=== PATIENT | male | born 1970 | race Caucasian/White ===

== ENCOUNTER 2023-09-15 07:30 | Inpatient (IN) ==
[2023-09-15] MEDS ORDERED: NS 1,000 ML IV 1,000 ML IV ONE (07:52)
[2023-09-15] MEDS ORDERED: NS 1,000 ML IV 1,000 ML ONE ×2 (07:55→08:56)
[2023-09-15 08:09] LABS: BASOPHILS # (AUTO) 0.2 X10^3/uL (0.0-0.1); BASOPHILS % (AUTO) 0.9 % (0.2-1.0); EOSINOPHILS % (AUTO) 0.1 % (0.9-2.9); HEMATOCRIT 46.5 % (42.0-54.0); HEMOGLOBIN 15.7 g/dL (13.5-18.0); LYMPHOCYTES # (AUTO) 1.2 X10^3/uL (1.3-2.9); MEAN CORPUSCULAR HEMOGLOBIN 29.2 pg (27.0-34.0); MEAN CORPUSCULAR HGB CONC 33.8 g/dL (33.0-35.0); MEAN CORPUSCULAR VOLUME 86.6 fL (80.0-100.0); MEAN PLATELET VOLUME 7.2 fL (7.4-11.0); MONOCYTES # (AUTO) 1.4 x10^3/uL (0.3-0.8); MONOCYTES % (AUTO) 8.2 % (0.0-13.0); NEUTROPHILS # (AUTO) 14.2 x10^3/uL (2.2-4.8); NEUTROPHILS % (AUTO) 83.8 % (42.0-75.0); PLATELET COUNT 236 X10^3/uL (150.0-450.0); RED BLOOD COUNT 5.38 X10^6/uL (4.7-6.0); RED CELL DISTRIBUTION WIDTH 13.2 % (11.6-16.5); WHITE BLOOD COUNT 16.9 X10^3/uL (3.6-10.0)
--- NOTE | 2023-09-15 08:09 | DR.GENAD ---
HPI <Ayaz Whitmore - Last Filed: 09/16/23 09:20> Time Seen Time Seen by Provider: 09/15/23 07:51 PCP Primary Care Physician: CARRIE Merida Complaint/Symptoms Chief Complaint Doctors Comments: 52-year-old male presents for evaluation. HPI summarized nicely by the triage nurse in the paragraph below -had 2 syncopal episodes while trying to have a BM. Then proceeded to have lower abdominal cramping/pain with large bloody bowel. Had 3 bloody bowel movements in a short amount of time. No history of known diverticulosis, internal hemorrhoids. Patient is on Eliquis. Currently having lower abdominal cramping, no lig htheadedness or dizziness at the present time. [facility] slightly nauseous on the way over but better now. Denies fever, recent illness. Chief Complaint:: Pt states that around 2am this morning got up to the bathroom and felt that he had to have a BM. Pt passed gas and the next thing he knew he woke up on the bathroom floor. Pt's assisted him back to bed and in a few minutes he felt like he needed have a BM again so he got up and again passed out. Pt has had weakness and dizziness since then. Pt did eventually get to the bathroom and tried to have a BM and had a sudden onset of lower mid abdominal pain described as constant sharp stabbing in nature and noticed a lot of bright red blood in the toilet. Pt also states that his urine was dark this morning. Pt does have a wound to the bottom of the left foot that has worsened and he now has redness to the top of the left foot. COVID-19 Coronavirus risk:travel/contact w/high risk person: No Has patient experienced Coronavirus symptoms: No Nurses notes reviewed Nurses Notes Review: Yes Source History Provided: Patient Mode of Arrival Mode of Arrival: Ambulatory Timing Onset of Chief Complaint: 09/15/23 PMH <Ayaz Whitmore - Last Filed: 09/16/23 09:20> PMH Past Medical History: Yes Past Medical History: Diabetes and Hypertension Past Medical History Comment: neuropathy, Factor V Leiden, Brain Bleed Past Surgical History: Yes Surgical History: Appendectomy Past Surgical History Comment: Bilateral great toe surgery, Back Surgery, Left index finger reconstruction Family History History of Family Medical Conditions: Yes Family Medical History: Diabetes Mellitus, Cancer, [place], Coronary Artery Disease, Heart Failure and Hypertension Social History Does patient currently use any type of tobacco product: No Have you used tobacco products in the last 12 months: No Type of Tobacco Use: None Does any household member use tobacco: No Alcohol Use: None Do you use any recreational Drugs:: No Lives With: Spouse Lives Where: Home Travel Risk Coronavirus risk:travel/contact w/high risk person: No Has patient experienced Coronavirus symptoms: No Infectious screening In the last 2 months have you had wt loss of >10#?: NO Have you had fever, night sweats or hemotysis?: No Have you traveled outside the country in the last 6 months?: No Isolation: Standard ROS <Ayaz Haim - Last Filed: 09/16/23 09:20> Review of Systems Constitutional: No Symptoms Reported Eyes: No Symptoms Reported ENTM: No Symptoms Reported Respiratoy: No Symptoms Reported Cardiovascular: No Symptoms Reported Gastrointestinal/Abdominal: See HPI Genitourinary: No Symptoms Reported Neurological: No Symptoms Reported Musculoskeletal: No Symptoms Reported Integumentary: No Symptoms Reported Hematologic/Lymphatic: No Symptoms Reported All Other Systems: Reviewed and Negative PE <Ayazabebe Whitmore - Last Filed: 09/16/23 09:20> Vital Signs Vitals: Vital Signs Temperature 98.9 F Pulse Rate 66 Pulse Rate 69 Pulse Rate 71 Pulse Rate 63 Pulse Rate 68 Pulse Rate 68 Pulse Rate 78 Pulse Rate 67 Respiratory Rate 22 Respiratory Rate 32 Respiratory Rate 29 Respiratory Rate 34 Respiratory Rate 29 Respiratory Rate 21 Respiratory Rate 20 Respiratory Rate 24 Blood Pressure 98/60 Blood Pressure 89/62 Blood Pressure 90/58 Blood Pressure 85/57 O2 Sat by Pulse Oximetry 98 General General Appearance: Alert and In No Apparent Distress Eyes Eye exam: PERRL and EOMI ENT ENT Exam: Normal Exam and Normal Oropharynx Neck Neck Exam: Normal Inspection Respiratory Respiratory Exam: Normal Lung Sounds Bilat; negative Accessory Muscle Use or Respiratory Distress Cardiovascular Cardiovascular Exam: Regular Rate, Normal Rhythm and Normal Heart Sounds Abdominal Exam Abdominal Exam: Normal Bowel Sounds, Soft and Tenderness (Across the lower abdomen, no guarding or rebound) Extremities Extremities Exam: Normal Inspection Neurologic Neurological Exam: Alert, Oriented X3 and CN II-XII Intact; negative Motor Sensory Deficit Skin Skin Exam: Warm and Dry <Ruba Morris - Last Filed: 09/15/23 10:30> Vital Signs Vitals: Vital Signs Temperature 98.9 F Pulse Rate 66 Pulse Rate 69 Pulse Rate 71 Pulse Rate 63 Pulse Rate 68 Pulse Rate 68 Pulse Rate 78 Pulse Rate 67 Respiratory Rate 22 Respiratory Rate 32 Respiratory Rate 29 Respiratory Rate 34 Respiratory Rate 29 Respiratory Rate 21 Respiratory Rate 20 Respiratory Rate 24 Blood Pressure 98/60 Blood Pressure 89/62 Blood Pressure 90/58 Blood Pressure 85/57 O2 Sat by Pulse Oximetry 98 COURSE <Ayaz Whitmore - Last Filed: 09/16/23 09:20> Treatment Treatment: 52-year-old male presents for evaluation. Had 2 syncopal episodes while trying to move his bowels earlier this a.m.. Episodes then followed with large amount of bright red blood per rectal, x 3. Currently no distress, has mild abdominal discomfort. Workup initiated. Patient given IV fluids. Patient also with a developing cellulitis of his left foot, probably coming from diabetic foot ulcer of the plantar surface. Was treated with doxycycline and Cipro 2 weeks ago. Patient will be signed over to my relief physician. <Ruba Morris - Last Filed: 09/15/23 10:30> Treatment Treatment: 52-year-old male presents for evaluation. Had 2 syncopal episodes while trying to move his bowels earlier this a.m.. Episodes then followed with large amount of bright red blood per rectal, x 3. Currently no distress, has mild abdominal discomfort. Workup initiated. Patient given IV fluids. Patient also with a developing cellulitis of his left foot, probably coming from diabetic foot ulcer of the plantar surface. Was treated with doxycycline and Cipro 2 weeks ago. Patient will be signed over to my relief physician. Assumed care from Dr Whitmore. Patient was hypotensive with a systolic BP in the 80's.He received NS 1 liter iv bolus and his BP 98/60. Patient has a diabetic foot ulcer and a cellulitis on t he dorsal surface of his L foot. Patient has a WBC 16.9 and a stable H/H. Concerned about bacteremia because he has been taking ciprofloxacin and doxycycline prescribed by his poiatrist.Patient also had BRBPR x 2 episodes and had 2 syncopal episodes at the house. 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 Discussed case with Dr Garnica who will admit patient to his service. NS @ 125ml/hr has been ordered,blood cx,and vancomycin 1500mg iv. Patient c/o headache and neck pain.Head CT w/o contrast and Cervical Spine Ct w/o contrast did not reveal an acute process per te Radiologist. ROR <Ayaz Whitmore - Last Filed: 09/16/23 09:20> Labs Reviewed 09/16/23 04:50 09/16/23 04:50 Laboratory: WBC 16.9 X10^3/uL (3.6-10.0) H 09/15/23 07:50 RBC 5.38 X10^6/uL (4.7-6.0) 09/15/23 07:50 Hgb 15.7 g/dL (13.5-18.0) 09/15/23 07:50 Hct 46.5 % (42.0-54.0) 09/15/23 07:50 MCV 86.6 fL (80.0-100.0) 09/15/23 07:50 MCH 29.2 pg (27.0-34.0) 09/15/23 07:50 MCHC 33.8 g/dL (33.0-35.0) 09/15/23 07:50 RDW 13.2 % (11.6-16.5) 09/15/23 07:50 Plt Count 236 X10^3/uL (150.0-450.0) 09/15/23 07:50 MPV 7.2 fL (7.4-11.0) L 09/15/23 07:50 Neut % (Auto) 83.8 % (42.0-75.0) H 09/15/23 07:50 Lymph % (Auto) 7.0 % (21.0-51.0) L 09/15/23 07:50 [place] % (Auto) 8.2 % (0.0-13.0) 09/15/23 07:50 Eos % (Auto) 0.1 % (0.9-2.9) L 09/15/23 07:50 Baso % (Auto) 0.9 % (0.2-1.0) 09/15/23 07:50 Neut # (Auto) 14.2 x10^3/uL (2.2-4.8) H 09/15/23 07:50 Lymph # (Auto) 1.2 X10^3/uL (1.3-2.9) L 09/15/23 07:50 [place] # (Auto) 1.4 x10^3/uL (0.3-0.8) H 09/15/23 07:50 Eos # (Auto) 0.0 x10^3/uL (0.0-0.2) 09/15/23 07:50 Baso # (Auto) 0.2 X10^3/uL (0.0-0.1) H 09/15/23 07:50 Absolute Nucleated RBC 0.2 /100WBC 09/15/23 07:50 PT 14.6 SECONDS (11.8-14.3) 09/15/23 07:50 INR Target Range - 09/15/23 07:50 INR 1.16 (0.8-1.3) 09/15/23 07:50 APTT 27.9 SECONDS (22.9-36.5) 09/15/23 07:50 PTT Comment - 09/15/23 07:50 Sodium 132 mmol/L (136-145) L 09/15/23 07:50 Corrected Sodium 133 mmol/L (136-145) L 09/15/23 07:50 Potassium 4.4 mmol/L (3.5-5.1) 09/15/23 07:50 Chloride 97 mmol/L (98-107) L 09/15/23 07:50 Carbon Dioxide 28.4 mmol/L (21-32) 09/15/23 07:50 BUN 17 mg/dL (7-18) 09/15/23 07:50 Creatinine 1.25 mg/dL (0.70-1.30) 09/15/23 07:50 Est GFR (MDRD) Af Amer > 60 (>60) 09/15/23 07:50 Est GFR (MDRD) Non-Af > 60 (>60) 09/15/23 07:50 Glucose 146 mg/dL (65-99) H 09/15/23 07:50 Lactic Acid 1.1 mmol/L (0.4-2.0) 09/15/23 08:57 Calcium 9.2 mg/dL (8.5-10.1) 09/15/23 07:50 Corrected Calcium 9.8 mg/dL (8.5-10.1) 09/15/23 07:50 Total Bilirubin 1.60 mg/dL (0.2-1.0) H 09/15/23 07:50 AST 15 Units/L (15-37) 09/15/23 07:50 ALT 21 Units/L (12-78) 09/15/23 07:50 Alkaline Phosphatase 90 Units/L (46-116) 09/15/23 07:50 Troponin I High Sens 7.2 ng/L (4.0-60.0) 09/15/23 07:50 Total Protein 7.4 g/dL (6.4-8.2) 09/15/23 07:50 Albumin 3.3 g/dL (3.4-5.0) L 09/15/23 07:50 Globulin 4.1 g/dL (2.5-4.5) 09/15/23 07:50 Albumin/Globulin Ratio 0.8 Ratio (1.1-2.1) L 09/15/23 07:50 Lipase 28 Units/L (16-77) 09/15/23 07:50 EKG Rate: 67 [place]: Normal Rhythm: NSR ST: Nonsp <Ruba Morris - Last Filed: 09/15/23 10:30> Labs Reviewed Laboratory Results Reviewed?: Yes Laboratory: WBC 16.9 X10^3/uL (3.6-10.0) H 09/15/23 07:50 RBC 5.38 X10^6/uL (4.7-6.0) 09/15/23 07:50 Hgb 15.7 g/dL (13.5-18.0) 09/15/23 07:50 Hct 46.5 % (42.0-54.0) 09/15/23 07:50 MCV 86.6 fL (80.0-100.0) 09/15/23 07:50 MCH 29.2 pg (27.0-34.0) 09/15/23 07:50 MCHC 33.8 g/dL (33.0-35.0) 09/15/23 07:50 RDW 13.2 % (11.6-16.5) 09/15/23 07:50 Plt Count 236 X10^3/uL (150.0-450.0) 09/15/23 07:50 MPV 7.2 fL (7.4-11.0) L 09/15/23 07:50 Neut % (Auto) 83.8 % (42.0-75.0) H 09/15/23 07:50 Lymph % (Auto) 7.0 % (21.0-51.0) L 09/15/23 07:50 [place] % (Auto) 8.2 % (0.0-13.0) 09/15/23 07:50 Eos % (Auto) 0.1 % (0.9-2.9) L 09/15/23 07:50 Baso % (Auto) 0.9 % (0.2-1.0) 09/15/23 07:50 Neut # (Auto) 14.2 x10^3/uL (2.2-4.8) H 09/15/23 07:50 Lymph # (Auto) 1.2 X10^3/uL (1.3-2.9) L 09/15/23 07:50 [place] # (Auto) 1.4 x10^3/uL (0.3-0.8) H 09/15/23 07:50 Eos # (Auto) 0.0 x10^3/uL (0.0-0.2) 09/15/23 07:50 Baso # (Auto) 0.2 X10^3/uL (0.0-0.1) H 09/15/23 07:50 Absolute Nucleated RBC 0.2 /100WBC 09/15/23 07:50 PT 14.6 SECONDS (11.8-14.3) 09/15/23 07:50 INR Target Range - 09/15/23 07:50 INR 1.16 (0.8-1.3) 09/15/23 07:50 APTT 27.9 SECONDS (22.9-36.5) 09/15/23 07:50 PTT Comment - 09/15/23 07:50 Sodium 132 mmol/L (136-145) L 09/15/23 07:50 Corrected Sodium 133 mmol/L (136-145) L 09/15/23 07:50 Potassium 4.4 mmol/L (3.5-5.1) 09/15/23 07:50 Chloride 97 mmol/L (98-107) L 09/15/23 07:50 Carbon Dioxide 28.4 mmol/L (21-32) 09/15/23 07:50 BUN 17 mg/dL (7-18) 09/15/23 07:50 Creatinine 1.25 mg/dL (0.70-1.30) 09/15/23 07:50 Est GFR (MDRD) Af Amer > 60 (>60) 09/15/23 07:50 Est GFR (MDRD) Non-Af > 60 (>60) 09/15/23 07:50 Glucose 146 mg/dL (65-99) H 09/15/23 07:50 Lactic Acid 1.1 mmol/L (0.4-2.0) 09/15/23 08:57 Calcium 9.2 mg/dL (8.5-10.1) 09/15/23 07:50 Corrected Calcium 9.8 mg/dL (8.5-10.1) 09/15/23 07:50 Total Bilirubin 1.60 mg/dL (0.2-1.0) H 09/15/23 07:50 AST 15 Units/L (15-37) 09/15/23 07:50 ALT 21 Units/L (12-78) 09/15/23 07:50 Alkaline Phosphatase 90 Units/L (46-116) 09/15/23 07:50 Troponin I High Sens 7.2 ng/L (4.0-60.0) 09/15/23 07:50 Total Protein 7.4 g/dL (6.4-8.2) 09/15/23 07:50 Albumin 3.3 g/dL (3.4-5.0) L 09/15/23 07:50 Globulin 4.1 g/dL (2.5-4.5) 09/15/23 07:50 Albumin/Globulin Ratio 0.8 Ratio (1.1-2.1) L 09/15/23 07:50 Lipase 28 Units/L (16-77) 09/15/23 07:50 Opioid <Ayaz Whitmore - Last Filed: 09/16/23 09:20> Opioid Risk Tool Age (Abhi box if 16-45): No History of Preadolescent Sexual Abuse: No Total: 0 Total Score Risk Category: Low Risk Copyright: Ritchie DOWD predicting aberrant behaviors <Ruba Morris - French Filed: 09/15/23 10:30> Opioid Risk Tool Total: 0 Total Score Risk Category: Low Risk Discharge Plan Diagnosis Discharge Problem: Cellulitis of foot, left, Failure of outpatient treatment, Acute hypotension, Rectal bleeding Discharge Plan Patient Disposition: 09 ADMITTED INPATIENT Condition: Stable
[2023-09-15 08:13] LABS: INR 1.16 (0.8-1.3)
[2023-09-15 08:21] LABS: ALANINE AMINOTRANSFERASE 21 Units/L (12-78); ALBUMIN 3.3 g/dL (3.4-5.0); ALKALINE PHOSPHATASE 90 Units/L (46-116); ASPARTATE AMINO TRANSFERASE 15 Units/L (15-37); BLOOD UREA NITROGEN 17 mg/dL (7-18); CALCIUM 9.2 mg/dL (8.5-10.1); CARBON DIOXIDE 28.4 mmol/L (21-32); CHLORIDE 97 mmol/L (98-107); COR CA(FOR HYPOALB) 9.8 mg/dL (8.5-10.1); COR NA(FOR HYPERGLY) 133 mmol/L (136-145); CREATININE 1.25 mg/dL (0.70-1.30); GLUCOSE 146 mg/dL (65-99); LIPASE 28 Units/L (16-77); POTASSIUM 4.4 mmol/L (3.5-5.1); SODIUM 132 mmol/L (136-145); TOTAL PROTEIN 7.4 g/dL (6.4-8.2); eGFR NON BLACK RACES > 60 (>60)
--- NOTE | 2023-09-15 08:39 | EKG ---
Test Reason : syncope Blood Pressure : */* mmHG Vent. Rate : 67 BPM Atrial Rate : 67 BPM P-R Int : 164 ms QRS Dur : 100 ms QT Int : 386 ms P-R-T Axes : 16 33 100 degrees QTc Int : 407 ms Normal sinus rhythm lateral t wave abnormality Abnormal ECG No previous ECGs available Confirmed by Francois Carmichael MD ([id number]) on 09/16/2023 9:24:54 AM Referred By: Confirmed By: Francois Carmichael MD
[2023-09-15] MEDS ORDERED: VANCOMYCIN IV *PREMIX 1.5 G/300 ML BAG 1.5 G/300 ML PIGGYBACK IV ONE ×2 (08:54→08:56)
[2023-09-15] MEDS ORDERED: VANCOMYCIN IV *PREMIX 1.5 G/300 ML BAG 1.5 G/300 ML PIGGYBACK IV SCH (09:00)
[2023-09-15] MEDS: NS 1,000 ML IV 1,000 ML IV SCH ×2 (09:01→17:26)
--- NOTE | 2023-09-15 09:49 | CT ---
EXAM:HEAD (TRAUMA)HISTORY:Pt passed out hit back of head. pt is on blood thinner;COMPARISON:NoneTECHNIQUE:Multipl e CT axial images of the brain were obtained without IV contrast. Coronal and sagittal images were reconstructed. Dose reduction techniques included Automated Exposure Control (AEC) and adjustment of mA and kV.FINDINGS:Goel and white matter have normal differentiation. There is no mass, shift, or hemorrhage. Cerebellar tonsils are at an appropriate level. No fluid in the sinuses or mucosal thickening to suggest sinusitis. There is no mastoid effusion. There is no calvarium fracture.IMPRESSION:1. No acute findingTHIS IS AN ELECTRONICALLY VERIFIED FINAL REPORT09/15/2023 9:46 AM - Electronically signed by Ho Rucker MD
--- NOTE | 2023-09-15 09:53 | CT ---
EXAM:CERVICAL SPINE W/O CONHISTORY:fall with neck pain;COMPARISON:NoneTECHNIQUE:Multiple CT axial images of the cervical spine were obtained without IV contrast. Coronal and sagittal images were reconstructed. Dose reduction techniques included Automated Exposure Control (AEC) and adjustment of mA and kV.FINDINGS:There is no significant scoliosis. The usual lordosis is maintained.The heights of the vertebral bodies are normal. No subluxation or prevertebral soft tissue swelling.No fracture.Only very minimal changes of degenerative disc disease are noted at C4-5 level and the C6-7 level. Even less pronounced findings of facet osteoarthritis.The thyroid has a normal size and configuration. No neck mass or significant lymphadenopathy. Vascular calcifications are seen in the carotid arteries.IMPRESSION:1. No acute findings2. Mild spondylosisTHIS IS AN ELECTRONICALLY VERIFIED FINAL REPORT09/15/2023 9:50 AM - Electronically signed by oH Rucker MD
[2023-09-15 11:45] VITALS: BMI 27.4
[2023-09-15] MEDS ORDERED: PHARMACY CONSULT - VANCOMYCIN XX SCH (12:00)
--- NOTE | 2023-09-15 13:32 | DR.H&P ---
H&P History & Physical for Day of: H&P Date: 09/15/23 Chief Complaint Chief Complaint: SYNCOPE, RECTAL BLEEDING, INFECTED ULCER TO LFOOT Allergies Allergies Allergy/AdvReac Type Severity Reaction Status Date / Time No Known Drug Allergies Allergy Verified 09/15/23 11:46 History of Present Illness History of Present Illness: 52 WM, ER admission after he presents for evaluation for co 2 syncopal episodes while trying to have a BM. Then proceeded to have lower abdominal cramping/pain with large bloody bowel. Had 3 bloody bowel movements in a short amount of time. No history of known diverticulosis, internal hemorrhoids. Patient is on Eliquis due to Factor V disorder. Pt reports he has a wound to his left that is red, with increased swelling and pain. Pt has been under routine care of [facility] [employer], with redness acute finding. Pt had at Ct of head and cspine in the ER. Pt admitted for treatment and evaluation of acute illness. Past Medical History Past Medical History: Diabetes and Hypertension Past Surgical History Surgical History: Appendectomy and Ortho Surgery Family History Family Medical History: Diabetes Mellitus, Cancer, Coronary Artery Disease and Hypertension Social History Does patient currently use any type of tobacco product: No Have you used tobacco products in the last 12 months: No Type of Tobacco Use: None Does any household member use tobacco: No Alcohol Use: None Drug Use: None Medications Home Medications: Home Medications Medication Instructions Recorded Confirmed Type apixaban 5 mg tablet (Eliquis) 5 mg PO QDAY 09/15/23 09/15/23 History atorvastatin 20 mg tablet 20 mg PO QPM 09/15/23 09/15/23 History ergocalciferol (vitamin D2) 1,250 1,250 mcg PO QWEEK 09/15/23 09/15/23 History mcg (50,000 unit) capsule losartan 100 mg tablet 100 mg PO QDAY 09/15/23 09/15/23 History tirzepatide 15 mg/0.5 mL 15 mg subcut QWEEK 09/15/23 09/15/23 History subcutaneous pen injector (Mounjaro) Labs 09/15/23 07:50 09/15/23 07:50 Labs: Laboratory WBC 16.9 X10^3/uL (3.6-10.0) H 09/15/23 07:50 RBC 5.38 X10^6/uL (4.7-6.0) 09/15/23 07:50 Hgb 15.7 g/dL (13.5-18.0) 09/15/23 07:50 Hct 46.5 % (42.0-54.0) 09/15/23 07:50 MCV 86.6 fL (80.0-100.0) 09/15/23 07:50 MCH 29.2 pg (27.0-34.0) 09/15/23 07:50 MCHC 33.8 g/dL (33.0-35.0) 09/15/23 07:50 RDW 13.2 % (11.6-16.5) 09/15/23 07:50 Plt Count 236 X10^3/uL (150.0-450.0) 09/15/23 07:50 MPV 7.2 fL (7.4-11.0) L 09/15/23 07:50 Neut % (Auto) 83.8 % (42.0-75.0) H 09/15/23 07:50 Lymph % (Auto) 7.0 % (21.0-51.0) L 09/15/23 07:50 [place] % (Auto) 8.2 % (0.0-13.0) 09/15/23 07:50 Eos % (Auto) 0.1 % (0.9-2.9) L 09/15/23 07:50 Baso % (Auto) 0.9 % (0.2-1.0) 09/15/23 07:50 Neut # (Auto) 14.2 x10^3/uL (2.2-4.8) H 09/15/23 07:50 Lymph # (Auto) 1.2 X10^3/uL (1.3-2.9) L 09/15/23 07:50 [place] # (Auto) 1.4 x10^3/uL (0.3-0.8) H 09/15/23 07:50 Eos # (Auto) 0.0 x10^3/uL (0.0-0.2) 09/15/23 07:50 Baso # (Auto) 0.2 X10^3/uL (0.0-0.1) H 09/15/23 07:50 Absolute Nucleated RBC 0.2 /100WBC 09/15/23 07:50 PT 14.6 SECONDS (11.8-14.3) 09/15/23 07:50 INR Target Range - 09/15/23 07:50 INR 1.16 (0.8-1.3) 09/15/23 07:50 APTT 27.9 SECONDS (22.9-36.5) 09/15/23 07:50 PTT Comment - 09/15/23 07:50 Sodium 132 mmol/L (136-145) L 09/15/23 07:50 Corrected Sodium 133 mmol/L (136-145) L 09/15/23 07:50 Potassium 4.4 mmol/L (3.5-5.1) 09/15/23 07:50 Chloride 97 mmol/L (98-107) L 09/15/23 07:50 Carbon Dioxide 28.4 mmol/L (21-32) 09/15/23 07:50 BUN 17 mg/dL (7-18) 09/15/23 07:50 Creatinine 1.25 mg/dL (0.70-1.30) 09/15/23 07:50 Est GFR (MDRD) Af Amer > 60 (>60) 09/15/23 07:50 Est GFR (MDRD) Non-Af > 60 (>60) 09/15/23 07:50 Glucose 146 mg/dL (65-99) H 09/15/23 07:50 POC Glucose (mg/dL) 103 mg/dL (65-99) H 09/15/23 11:35 Lactic Acid 1.1 mmol/L (0.4-2.0) 09/15/23 08:57 Calcium 9.2 mg/dL (8.5-10.1) 09/15/23 07:50 Corrected Calcium 9.8 mg/dL (8.5-10.1) 09/15/23 07:50 Total Bilirubin 1.60 mg/dL (0.2-1.0) H 09/15/23 07:50 AST 15 Units/L (15-37) 09/15/23 07:50 ALT 21 Units/L (12-78) 09/15/23 07:50 Alkaline Phosphatase 90 Units/L (46-116) 09/15/23 07:50 Troponin I High Sens 7.2 ng/L (4.0-60.0) 09/15/23 07:50 Total Protein 7.4 g/dL (6.4-8.2) 09/15/23 07:50 Albumin 3.3 g/dL (3.4-5.0) L 09/15/23 07:50 Globulin 4.1 g/dL (2.5-4.5) 09/15/23 07:50 Albumin/Globulin Ratio 0.8 Ratio (1.1-2.1) L 09/15/23 07:50 Lipase 28 Units/L (16-77) 09/15/23 07:50 Review of Systems Constitutional: Weakness Eyes: No Symptoms Reported ENT: No Symptoms Reported Respiratory: No Symptoms Reported Cardiovascular: No Symptoms Reported Gastrointestinal: Diarrhea, Constipation and Melena Musculoskeletal: Foot Pain Skin: Wound Neurological: Weakness and Other (syncope) Physical Exam Vital Signs: Vital Signs Temperature 97.8 F Temperature 98.3 F Temperature 98.9 F Pulse Rate [Brachial] 68 Pulse Rate [Brachial] 71 Pulse Rate 69 Pulse Rate 72 Pulse Rate 68 Pulse Rate 68 Pulse Rate 72 Pulse Rate 71 Pulse Rate 66 Pulse Rate 69 Pulse Rate 71 Pulse Rate 63 Pulse Rate 68 Pulse Rate 68 Pulse Rate 78 Pulse Rate 67 Respiratory Rate 20 Respiratory Rate 25 Respiratory Rate 28 Respiratory Rate 26 Respiratory Rate 26 Respiratory Rate 20 Respiratory Rate 22 Respiratory Rate 41 Respiratory Rate 22 Respiratory Rate 32 Respiratory Rate 29 Respiratory Rate 34 Respiratory Rate 29 Respiratory Rate 21 Respiratory Rate 20 Respiratory Rate 24 Blood Pressure [Left Arm] 129/71 Blood Pressure [Right Arm] 149/67 Blood Pressure [Right Arm] 122/68 Blood Pressure 109/58 Blood Pressure 106/63 Blood Pressure 98/60 Blood Pressure 89/62 Blood Pressure 90/58 Blood Pressure 85/57 O2 Sat by Pulse Oximetry 99 O2 Sat by Pulse Oximetry 99 O2 Sat by Pulse Oximetry 98 Oriented: Normal Eyes: Normal Ear: Normal Nose: Normal Throat: Normal Respiratory: Clear Throughout Cardiovascular: Normal : Normal Palpation: Normal Tenderness: Normal Skin: Decreased [place], Red (diffuse redness to left dorsal aspect, base of 1, 2, 3rd toes) and Wound (left foot. ) Musculoskeletal: Left, Tender and Sensory Deficit Psychiatric: Normal Mood Description: Calm Speech Pattern: Clear and Appropriate Assessment/Plan (1) Syncope: Narrative Support Text: ADMIT, CT HEAD, EKG ABD CE OBTAINED IN ER IV HYDRATION, BP CONTROL BS CONTROL IV ATBX THERAPY, PAIN CONTROL WOUND CARE Status: Acute (2) Cellulitis of foot, left: Status: Acute (3) Diabetes mellitus: Status: Acute (4) Acute hypotension: Status: Acute (5) Rectal bleeding: Status: Acute
[2023-09-15 13:53] LABS: BILIRUBIN,URINE NEGATIVE (NEGATIVE); BLOOD/HEMOGLOBIN,URINE NEGATIVE (NEGATIVE); GLUCOSE, URINE NEGATIVE (NEGATIVE); KETONES,URINE NEGATIVE (NEGATIVE); LEUKOCYTE ESTERASE ,URINE NEGATIVE (NEGATIVE); NITRITES,URINE NEGATIVE (NEGATIVE); PROTEIN,URINE NEGATIVE (NEGATIVE); UROBILINOGEN,URINE NORMAL (NORMAL)
[2023-09-15] MEDS: NORCO 5/325 MG TAB PO PRN (13:57)
[2023-09-15 14:02] LABS: APPEARANCE,URINE CLEAR (CLEAR); COLOR,URINE YELLOW (YELLOW)
[2023-09-15] MEDS: VANCOMYCIN IV *PREMIX 1.5 G/300 ML BAG 1.5 G/300 ML PIGGYBACK IV SCH (20:40)
[2023-09-15] MEDS: LIPITOR TAB 20 MG PO SCH (20:40)
[2023-09-15] MEDS: DILAUDID INJ IVP PRN (21:52)
--- NOTE | 2023-09-16 01:46 | RAD ---
PROCEDURE: Chest X-ray 1 View .HISTORY: SYNCOPE .TECHNIQUE: AP view .COMPARISON: 10/04/2021.TECHNICAL QUALITY: Satisfactory .FINDINGS:Normal size heart .Mediastinum and hilar regions show no masses or lymphadenopathy .Normal central vascularity .No pulmonary consolidation, masses, pleural fluid, or pneumothorax .No acute bony abnormality .IMPRESSION:No active cardiopulmonary disease .Electronically signed by: Rhett Cantu (Sep 16, 2023 01:44:58)
[2023-09-16] MEDS: NS 1,000 ML IV 1,000 ML IV SCH ×3 (02:15→16:53)
[2023-09-16] MEDS: DILAUDID INJ IVP PRN ×5 (02:16→23:30)
[2023-09-16 05:54] LABS: ALANINE AMINOTRANSFERASE 17 Units/L (12-78); ALBUMIN 2.6 g/dL (3.4-5.0); ALKALINE PHOSPHATASE 63 Units/L (46-116); ASPARTATE AMINO TRANSFERASE 10 Units/L (15-37); BLOOD UREA NITROGEN 11 mg/dL (7-18); CALCIUM 8.3 mg/dL (8.5-10.1); CHLORIDE 99 mmol/L (98-107); COR CA(FOR HYPOALB) 9.4 mg/dL (8.5-10.1); COR NA(FOR HYPERGLY) 133 mmol/L (136-145); CREATININE 0.86 mg/dL (0.70-1.30); GLUCOSE 115 mg/dL (65-99); SODIUM 133 mmol/L (136-145); TOTAL PROTEIN 6.4 g/dL (6.4-8.2); eGFR NON BLACK RACES > 60 (>60)
[2023-09-16 06:09] LABS: BASOPHILS # (AUTO) 0.1 X10^3/uL (0.0-0.1); BASOPHILS % (AUTO) 0.6 % (0.2-1.0); EOSINOPHILS # (AUTO) 0.1 x10^3/uL (0.0-0.2); EOSINOPHILS % (AUTO) 0.8 % (0.9-2.9); HEMOGLOBIN 14.4 g/dL (13.5-18.0); LYMPHOCYTES # (AUTO) 1.6 X10^3/uL (1.3-2.9); LYMPHOCYTES % (AUTO) 12.8 % (21.0-51.0); MEAN CORPUSCULAR HEMOGLOBIN 29.3 pg (27.0-34.0); MEAN CORPUSCULAR HGB CONC 34.2 g/dL (33.0-35.0); MEAN CORPUSCULAR VOLUME 85.8 fL (80.0-100.0); MEAN PLATELET VOLUME 7.4 fL (7.4-11.0); MONOCYTES # (AUTO) 1.1 x10^3/uL (0.3-0.8); NEUTROPHILS # (AUTO) 9.6 x10^3/uL (2.2-4.8); NEUTROPHILS % (AUTO) 76.8 % (42.0-75.0); PLATELET COUNT 207 X10^3/uL (150.0-450.0); RED BLOOD COUNT 4.89 X10^6/uL (4.7-6.0); RED CELL DISTRIBUTION WIDTH 13.5 % (11.6-16.5); WHITE BLOOD COUNT 12.6 X10^3/uL (3.6-10.0)
[2023-09-16] MEDS: VANCOMYCIN IV *PREMIX 1.5 G/300 ML BAG 1.5 G/300 ML PIGGYBACK IV SCH ×2 (08:05→21:22)
[2023-09-16] MEDS ORDERED: ELIQUIS PO SCH (09:00)
--- NOTE | 2023-09-16 11:23 | RAD ---
EXAM:FOOT, LEFTHISTORY:CellulitisCOMPARISON:None available.FINDINGS:No acute cortical disruption or dislocation can be identified. No significant soft tissue swelling or injury can be seen.IMPRESSION:Negative examTHIS IS AN ELECTRONICALLY VERIFIED FINAL REPORT09/16/2023 11:19 AM - Electronically signed by Reyes Jerome MD
[2023-09-16] MEDS: PROTONIX INJ 40 MG VIAL IVP SCH ×2 (14:12→21:22)
[2023-09-16] MEDS ORDERED: PHARMACY COMMENT IV NR (19:30)
[2023-09-16 21:09] LABS: CREATININE 0.85 mg/dL (0.70-1.30); VANCOMYCIN,TROUGH 7.7 ug/mL (15-20)
[2023-09-16] MEDS: LIPITOR TAB 20 MG PO SCH (21:22)
[2023-09-17] MEDS: NS 1,000 ML IV 1,000 ML IV SCH ×4 (00:47→17:05)
[2023-09-17] MEDS: DILAUDID INJ IVP PRN ×5 (03:32→20:32)
[2023-09-17] MEDS ORDERED: VANCOMYCIN IV *PREMIX 1.5 G/300 ML BAG 1.5 G/300 ML PIGGYBACK IV SCH (06:00)
[2023-09-17 06:55] LABS: BASOPHILS # (AUTO) 0.1 X10^3/uL (0.0-0.1); BASOPHILS % (AUTO) 0.6 % (0.2-1.0); EOSINOPHILS # (AUTO) 0.1 x10^3/uL (0.0-0.2); EOSINOPHILS % (AUTO) 1.2 % (0.9-2.9); HEMATOCRIT 39.7 % (42.0-54.0); HEMOGLOBIN 13.4 g/dL (13.5-18.0); LYMPHOCYTES # (AUTO) 1.8 X10^3/uL (1.3-2.9); LYMPHOCYTES % (AUTO) 14.5 % (21.0-51.0); MEAN CORPUSCULAR HEMOGLOBIN 28.9 pg (27.0-34.0); MEAN CORPUSCULAR HGB CONC 33.6 g/dL (33.0-35.0); MEAN CORPUSCULAR VOLUME 85.9 fL (80.0-100.0); MEAN PLATELET VOLUME 7.1 fL (7.4-11.0); MONOCYTES # (AUTO) 1.1 x10^3/uL (0.3-0.8); MONOCYTES % (AUTO) 8.8 % (0.0-13.0); NEUTROPHILS # (AUTO) 9.1 x10^3/uL (2.2-4.8); NEUTROPHILS % (AUTO) 74.9 % (42.0-75.0); PLATELET COUNT 211 X10^3/uL (150.0-450.0); RED BLOOD COUNT 4.62 X10^6/uL (4.7-6.0); RED CELL DISTRIBUTION WIDTH 13.1 % (11.6-16.5); WHITE BLOOD COUNT 12.2 X10^3/uL (3.6-10.0)
[2023-09-17 07:23] LABS: ALANINE AMINOTRANSFERASE 17 Units/L (12-78); ALBUMIN 2.4 g/dL (3.4-5.0); ALKALINE PHOSPHATASE 61 Units/L (46-116); ASPARTATE AMINO TRANSFERASE 10 Units/L (15-37); BLOOD UREA NITROGEN 7 mg/dL (7-18); CALCIUM 7.9 mg/dL (8.5-10.1); CARBON DIOXIDE 27.3 mmol/L (21-32); CHLORIDE 101 mmol/L (98-107); COR CA(FOR HYPOALB) 9.2 mg/dL (8.5-10.1); CREATININE 0.76 mg/dL (0.70-1.30); GLUCOSE 101 mg/dL (65-99); POTASSIUM 3.7 mmol/L (3.5-5.1); SODIUM 134 mmol/L (136-145); TOTAL PROTEIN 6.3 g/dL (6.4-8.2); eGFR NON BLACK RACES > 60 (>60)
[2023-09-17] MEDS: PROTONIX INJ 40 MG VIAL IVP SCH ×2 (08:26→21:09)
[2023-09-17 10:05] LABS: CRYPTOSPORIDIUM PARVUM ANTIGEN NEGATIVE (NEGATIVE); GIARDIA LAMBLIA ANTIGEN NEGATIVE (NEGATIVE)
[2023-09-17] MEDS: GOLYTELY or GAVILYTE or Equivalent PO SCH (11:06)
[2023-09-17] MEDS: VANCOMYCIN IV *PREMIX 1.5 G/300 ML BAG 1.5 G/300 ML PIGGYBACK IV SCH ×2 (14:47→21:16)
--- NOTE | 2023-09-17 15:19 | DR.PROGNOT ---
HOSPITAL PROGRESS NOTE Progress Note for Day of: Progress Note Date: 09/17/23 Chief Complaint Chief Complaint: Still having bright red rectal bleeding with associated lower abdominal pain. No nausea or vomiting. Denies any rectal pain. No previous history of rectal bleeding. Patient is on Eliquis for factor V disorder.. No previous colonoscopy.. Stable vital signs and afebrile. Past Medical Family Social History Allergies: Allergies No Known Drug Allergies Allergy (Verified 09/15/23 11:46) Review Of Systems Changes in ROS: No changes Vital Signs Vital Signs: Vital Signs Temperature 98.1 F Temperature 98.3 F Pulse Rate [Brachial] 74 Pulse Rate [Brachial] 71 Respiratory Rate 18 Respiratory Rate 18 Respiratory Rate 20 Respiratory Rate 18 Respiratory Rate 18 Respiratory Rate 20 Blood Pressure [Left Arm] 145/80 Blood Pressure [Left Arm] 130/75 O2 Sat by Pulse Oximetry 98 O2 Sat by Pulse Oximetry 96 Physical Exam Oriented: Normal Eyes: Normal Ear: Normal Nose: Normal Throat: Normal Cardiovascular: Normal : Normal GI:Palpation: Normal GI: Tenderness: Normal Skin: Decreased [place], Red (diffuse redness to left dorsal aspect, base of 1, 2, 3rd toes) and Wound (left foot. ) Musculoskeletal: Left, Tender and Sensory Deficit Psychiatric: Normal Mood Description: Calm Speech Pattern: Clear Laboratory and Diagnostics 09/17/23 06:04 09/17/23 06:04 Labs: 09/15/23 09:03 Blood Blood Culture - Preliminary 09/15/23 08:57 Blood Blood Culture - Preliminary 09/17/23 08:22 Stool - Final Laboratory WBC 12.2 X10^3/uL (3.6-10.0) H 09/17/23 06:04 RBC 4.62 X10^6/uL (4.7-6.0) L 09/17/23 06:04 Hgb 13.4 g/dL (13.5-18.0) L 09/17/23 06:04 Hct 39.7 % (42.0-54.0) L 09/17/23 06:04 MCV 85.9 fL (80.0-100.0) 09/17/23 06:04 MCH 28.9 pg (27.0-34.0) 09/17/23 06:04 MCHC 33.6 g/dL (33.0-35.0) 09/17/23 06:04 RDW 13.1 % (11.6-16.5) 09/17/23 06:04 Plt Count 211 X10^3/uL (150.0-450.0) 09/17/23 06:04 MPV 7.1 fL (7.4-11.0) L 09/17/23 06:04 Neut % (Auto) 74.9 % (42.0-75.0) 09/17/23 06:04 Lymph % (Auto) 14.5 % (21.0-51.0) L 09/17/23 06:04 [place] % (Auto) 8.8 % (0.0-13.0) 09/17/23 06:04 Eos % (Auto) 1.2 % (0.9-2.9) 09/17/23 06:04 Baso % (Auto) 0.6 % (0.2-1.0) 09/17/23 06:04 Neut # (Auto) 9.1 x10^3/uL (2.2-4.8) H 09/17/23 06:04 Lymph # (Auto) 1.8 X10^3/uL (1.3-2.9) 09/17/23 06:04 [place] # (Auto) 1.1 x10^3/uL (0.3-0.8) H 09/17/23 06:04 Eos # (Auto) 0.1 x10^3/uL (0.0-0.2) 09/17/23 06:04 Baso # (Auto) 0.1 X10^3/uL (0.0-0.1) 09/17/23 06:04 Absolute Nucleated RBC 0.0 /100WBC 09/17/23 06:04 PT 14.6 SECONDS (11.8-14.3) 09/15/23 07:50 INR Target Range - 09/15/23 07:50 INR 1.16 (0.8-1.3) 09/15/23 07:50 APTT 27.9 SECONDS (22.9-36.5) 09/15/23 07:50 PTT Comment - 09/15/23 07:50 Sodium 134 mmol/L (136-145) L 09/17/23 06:04 Corrected Sodium TNP 09/17/23 06:04 Potassium 3.7 mmol/L (3.5-5.1) 09/17/23 06:04 Chloride 101 mmol/L (98-107) 09/17/23 06:04 Carbon Dioxide 27.3 mmol/L (21-32) 09/17/23 06:04 BUN 7 mg/dL (7-18) 09/17/23 06:04 Creatinine 0.76 mg/dL (0.70-1.30) 09/17/23 06:04 Est GFR (MDRD) Af Amer > 60 (>60) 09/17/23 06:04 Est GFR (MDRD) Non-Af > 60 (>60) 09/17/23 06:04 Glucose 101 mg/dL (65-99) H 09/17/23 06:04 POC Glucose (mg/dL) 99 mg/dL (65-99) 09/17/23 11:44 Lactic Acid 1.1 mmol/L (0.4-2.0) 09/15/23 08:57 Calcium 7.9 mg/dL (8.5-10.1) L 09/17/23 06:04 Corrected Calcium 9.2 mg/dL (8.5-10.1) 09/17/23 06:04 Total Bilirubin 0.70 mg/dL (0.2-1.0) 09/17/23 06:04 AST 10 Units/L (15-37) L 09/17/23 06:04 ALT 17 Units/L (12-78) 09/17/23 06:04 Alkaline Phosphatase 61 Units/L (46-116) 09/17/23 06:04 Troponin I High Sens 7.2 ng/L (4.0-60.0) 09/15/23 07:50 Total Protein 6.3 g/dL (6.4-8.2) L 09/17/23 06:04 Albumin 2.4 g/dL (3.4-5.0) L 09/17/23 06:04 Globulin 3.9 g/dL (2.5-4.5) 09/17/23 06:04 Albumin/Globulin Ratio 0.6 Ratio (1.1-2.1) L 09/17/23 06:04 Lipase 28 Units/L (16-77) 09/15/23 07:50 Specimen Type Clean catch urine 09/15/23 13:43 Urine Color Yellow (YELLOW) 09/15/23 13:43 Urine Appearance Clear (CLEAR) 09/15/23 13:43 Urine pH 5.0 (5.0 - 8.0) 09/15/23 13:43 Ur Specific [place] 1.020 (1.000-1.030) 09/15/23 13:43 Urine Protein Negative (NEGATIVE) 09/15/23 13:43 Urine Glucose (UA) Negative (NEGATIVE) 09/15/23 13:43 Urine Ketones Negative (NEGATIVE) 09/15/23 13:43 Urine Blood Negative (NEGATIVE) 09/15/23 13:43 Urine Nitrite Negative (NEGATIVE) 09/15/23 13:43 Urine Bilirubin Negative (NEGATIVE) 09/15/23 13:43 Urine Urobilinogen Normal (NORMAL) 09/15/23 13:43 Ur Leukocyte Esterase Negative (NEGATIVE) 09/15/23 13:43 Stl Occult Blood (IFOB) Positive (NEGATIVE) A 09/17/23 08:22 Stool for White Cells Positive (NEGATIVE) A 09/17/23 08:22 Stl C. diff Tox B Gene Negative (NEGATIVE) 09/17/23 08:22 Stl C. diff [id number] Presumptive negative (NEGATIVE) 09/17/23 08:22 Stool H. pylori Ag Negative (NEGATIVE) 09/17/23 08:22 Vancomycin Trough 7.7 ug/mL (15-20) L 09/16/23 20:30 Cryptosporid parvum Ag Negative (NEGATIVE) 09/17/23 08:22 Giardia lamblia Ag Negative (NEGATIVE) 09/17/23 08:22 Assessment and Plan 1: Recent rectal bleeding with lower abdominal pain, provide colitis. For colonoscopy in the morning. Problem Patient Problems: Patient Problems (Updated 09/15/23 @ 13:31 by FREEMAN DOWNING) Cellulitis of foot, left (Acute) L03.116 Failure of outpatient treatment (Acute) Z78.9 Acute hypotension (Acute) I95.9 Rectal bleeding (Acute) K62.5
[2023-09-17] MEDS ORDERED: CONSULT PHARMACY - POTASSIUM & MAGNESIUM XX SCH (20:00)
[2023-09-17] MEDS ORDERED: K-DUR TAB 20 MEQ PO ONE (20:00)
[2023-09-17] MEDS: LIPITOR TAB 20 MG PO SCH (21:08)
[2023-09-17] MEDS: NORCO 5/325 MG TAB PO PRN (21:19)
[2023-09-17] MEDS ORDERED: HIBICLENS WASH EXT ONE (22:49)
[2023-09-18] MEDS: NS 1,000 ML IV 1,000 ML IV SCH ×3 (00:07→09:26)
[2023-09-18] MEDS: DILAUDID INJ IVP PRN ×3 (00:24→09:52)
[2023-09-18] MEDS ORDERED: PHARMACY COMMENT IV NR (04:30)
[2023-09-18 05:09] LABS: BASOPHILS # (AUTO) 0.1 X10^3/uL (0.0-0.1); BASOPHILS % (AUTO) 0.5 % (0.2-1.0); EOSINOPHILS # (AUTO) 0.2 x10^3/uL (0.0-0.2); EOSINOPHILS % (AUTO) 1.7 % (0.9-2.9); HEMATOCRIT 37.9 % (42.0-54.0); HEMOGLOBIN 13.1 g/dL (13.5-18.0); LYMPHOCYTES # (AUTO) 1.4 X10^3/uL (1.3-2.9); LYMPHOCYTES % (AUTO) 13.5 % (21.0-51.0); MEAN CORPUSCULAR HEMOGLOBIN 29.3 pg (27.0-34.0); MEAN CORPUSCULAR HGB CONC 34.5 g/dL (33.0-35.0); MONOCYTES % (AUTO) 9.7 % (0.0-13.0); NEUTROPHILS % (AUTO) 74.6 % (42.0-75.0); PLATELET COUNT 216 X10^3/uL (150.0-450.0); RED BLOOD COUNT 4.46 X10^6/uL (4.7-6.0); RED CELL DISTRIBUTION WIDTH 13.2 % (11.6-16.5); WHITE BLOOD COUNT 10.8 X10^3/uL (3.6-10.0)
[2023-09-18 05:13] LABS: CREATININE 0.85 mg/dL (0.70-1.30); VANCOMYCIN,TROUGH 16.2 ug/mL (15-20)
[2023-09-18 05:19] LABS: ALANINE AMINOTRANSFERASE 19 Units/L (12-78); ALBUMIN 2.3 g/dL (3.4-5.0); ALKALINE PHOSPHATASE 58 Units/L (46-116); ASPARTATE AMINO TRANSFERASE 15 Units/L (15-37); BLOOD UREA NITROGEN 6 mg/dL (7-18); CALCIUM 7.8 mg/dL (8.5-10.1); CARBON DIOXIDE 28.3 mmol/L (21-32); CHLORIDE 101 mmol/L (98-107); COR CA(FOR HYPOALB) 9.2 mg/dL (8.5-10.1); CREATININE 0.79 mg/dL (0.70-1.30); GLUCOSE 86 mg/dL (65-99); MAGNESIUM 1.7 mg/dL (2.0-2.9); POTASSIUM 3.8 mmol/L (3.5-5.1); SODIUM 138 mmol/L (136-145); TOTAL PROTEIN 6.1 g/dL (6.4-8.2); eGFR NON BLACK RACES > 60 (>60)
[2023-09-18] MEDS: VANCOMYCIN IV *PREMIX 1.5 G/300 ML BAG 1.5 G/300 ML PIGGYBACK IV SCH (05:58)
--- NOTE | 2023-09-18 08:20 | MRI ---
EXAM:MRI left foot without IV contrastHISTORY:Wound to left foot, pain-COMPARISON:X-ray 09/16/2023TECHNIQUE:MRI of the left foot without IV contrast is performed using standard sequences in multiple planes.FINDINGS:Subcutaneous edema is seen in the lower leg, ankle, and foot. This extends into the toes. There is edema within the musculature of the foot. Changes could be due to cellulitis or bland edema.Lateral to the 5th MTP joint there is a small focus fluid that could be a poorly formed abscess measuring 2.7 x 1.6 cm. There may be an adjacent tiny skin ulceration in the plantar aspect of the foot.There is concern for edema in the distal head of the 5th metatarsal and in the 5th proximal phalanges. However, inhomogeneous fat saturation limits several of the series in this region. This edema is concerning for possible osteomyelitis in these bones.IMPRESSION:Possible osteomyelitis in the distal head of 5th metatarsal and 5th phalanges. Consider confirmation with three-phase nuclear medicine bone scan given the artifacts on this study.Small fluid collection lateral to the 5th MTP joint could be a poorly formed abscess. There is likely adjacent skin ulceration.Other edema throughout the foot and ankle could be bland edema or cellulitis.THIS IS AN ELECTRONICALLY VERIFIED FINAL REPORT09/18/2023 8:16 AM - Electronically signed by Gregorio Holman MD
[2023-09-18 09:19] VITALS: BP 125/79; PULSE 82; RESP 20; TEMP 98.4; O2SAT 98
[2023-09-18] MEDS: GOLYTELY or GAVILYTE or Equivalent PO SCH (09:20)
[2023-09-18] MEDS: PROTONIX INJ 40 MG VIAL IVP SCH (09:28)
[2023-09-21] MEDS ORDERED: VITAMIN D (1.25MG) PO SCH (09:00)
== END 2023-09-18 11:45 | disposition left against medical advice (07) | DRG 312 ==
LOC: ER 07:30 → MED/SURG 09:21
PROVIDERS: ADMIT Internal Medicine; ATTEND Internal Medicine
DX: E87.1 Hypo-osmolality and hyponatremia; E11.621 Type 2 diabetes mellitus with foot ulcer; D68.2 Hereditary deficiency of other clotting factors; R42 Dizziness and giddiness; E11.65 Type 2 diabetes mellitus with hyperglycemia; R53.1 Weakness; K62.5 Hemorrhage of anus and rectum; L97.528 Non-pressure chronic ulcer of other part of left foot with other specified severity; L03.116 Cellulitis of left lower limb; Z53.29 Procedure and treatment not carried out because of patient's decision for other reasons; I95.89 Other hypotension; R10.84 Generalized abdominal pain; Z79.01 Long term (current) use of anticoagulants; M54.2 Cervicalgia; W18.39XA Other fall on same level, initial encounter; R55 Syncope and collapse; S09.8XXA Other specified injuries of head, initial encounter; Y92.009 Unspecified place in unspecified non-institutional (private) residence as the place of occurrence of the external cause